=== PATIENT | female | born 1960 | race Caucasian/White ===

== ENCOUNTER 2023-02-23 09:24 | Emergency (ER) | payer MEDICAID, OTHER ==
[~2023-02-23] VITALS: Ht 157.5 cm; Wt 73.0 kg
[2023-02-23] MEDS ORDERED: ASPI-1497 PO (09:57)
[2023-02-23] MEDS ORDERED: METF-414 PO (09:57)
[2023-02-23] MEDS ORDERED: NIFE90TA60 PO (09:57)
[2023-02-23] MEDS ORDERED: COR6 PO (09:57)
[2023-02-23] MEDS ORDERED: HYDRALAZINE 20MG/ML VIAL IV NR (10:00)
[2023-02-23 10:13] LABS: BASOPHILS % 0.9 % (0.0-2.0); EOSINOPHILS % 2.1 % (0.0-5.0); HEMATOCRIT. 37.9 % (36.0-48.0); HEMOGLOBIN. 13.2 g/dL (12.0-16.0); LYMPHOCYTES % 25.9 % (20.0-50.0); MEAN CORPUSCULAR VOLUME 86.1 fL (81.0-99.0); MONOCYTES % 4.7 % (2.0-8.0); NEUTROPHILS % 66.4 % (40.0-76.0); PLATELET 213 x1000/uL (130-400); RED BLOOD CELL COUNT 4.41 mill/uL (4.2-5.4); RED CELL DISTRIBUTION WIDTH 13.8 % (11.6-14.6)
[2023-02-23 10:16] LABS: CHLORIDE 110 mEq/L (98-107)
[2023-02-23] MEDS ORDERED: CARVEDILOL 6.25 MG TABLET PO NR (10:30)
[2023-02-23] MEDS ORDERED: POTASSIUM CHLORIDE 20MEQ/PACKET PO NR (10:30)
[2023-02-23] MEDS ORDERED: HYDRALAZINE 20MG/ML VIAL IV ONE (10:30)
[2023-02-23 11:00] VITALS: BP 132/73
[2023-02-23] MEDS ORDERED: NIFEDIPINE XL 90MG TAB PO NR (11:00)
== END 2023-02-23 12:19 | disposition home or self-care (01) ==
LOC: ER 09:24
DX: I10 Essential (primary) hypertension (principal); E11.65 Type 2 diabetes mellitus with hyperglycemia; Z76.0 Encounter for issue of repeat prescription; Z98.890 Other specified postprocedural states
CPT/HCPCS: 36415; 80053; 82962; 84484; 85025; 93005; 96374; 96376; 99284; J0360; Z7610